=== PATIENT | female | born 1965 | race Caucasian/White ===

== ENCOUNTER 2020-09-24 04:40 | Inpatient (IN) ==
[2020-09-24] MEDS ORDERED: HYDROCORTISONE 100 MG VIAL IV STA (04:54)
[2020-09-24] MEDS ORDERED: ALBUTEROL 2.5 MG/3 ML NEB RESP TX PRN (05:13)
[2020-09-24] MEDS ORDERED: ONDANSETRON 4 MG/2 ML VIAL IV PRN (05:13)
[2020-09-24] MEDS ORDERED: PIPERACILLIN/TAZOBACTAM 3,375 MG in SODIUM CHLORIDE 0.9% 100 ML IV STA (05:13)
[2020-09-24] MEDS ORDERED: VANCOMYCIN INJ 1,000 MG in SODIUM CHLORIDE 0.9% 250 ML IV ONE (05:13)
[2020-09-24] MEDS ORDERED: DOCUSATE SODIUM 100 MG CAPSULE PO PRN (05:13)
[2020-09-24] MEDS ORDERED: cefTRIAXone 2,000 MG in SODIUM CHLORIDE 0.9% 100 ML IV SCH (06:00)
[2020-09-24] MEDS ORDERED: GLUCAGON 1 MG VIAL IM PRN (06:17)
[2020-09-24] MEDS ORDERED: DEXTROSE 50% 25 GM/50 ML VIAL IV PRN (06:17)
[2020-09-24 06:35] LABS: Basophils % 0.1 % (0.0-0.8); Eosinophils # 0.1 10*3/uL (0.0-0.87); Eosinophils % 0.7 % (0.00-10.9); Hematocrit 33.5 VOL% (35.7-47.0); Hemoglobin 10.9 GM/DL (12.0-16.0); Immature Granulocytes Absolute 0.09 #; Lymphocytes # 0.4 10*3/uL (1.4-4.0); Lymphocytes % 4.8 % (21.3-54.2); Mean Corpuscular HGB Conc 32.5 GM/DL (32-36); Mean Corpuscular Volume 90.1 FL (87-102); Mean Platelet Volume 9.4 FL (9.6-12.0); Monocytes % 2.9 % (1.7-12.7); Neutrophils % 90.5 % (38.7-73.9); Platelet Count 157 T/CUMM (130-400); Red Blood Count 3.72 MC/CUMM (3.8-5.5); Red Cell Distribution Width 13.2 % (9.3-17.3); White Blood Count 8.6 T/CUMM (4-12)
[2020-09-24 06:40] LABS: Bilirubin,Urine Negative (Negative); Blood, Urine Moderate mg/dL (Negative); Glucose,Urine (UA) Negative (Negative); Ketones,Urine Negative (Negative); Nitrite,Urine Negative (Negative); Protein,Urine Negative; RBC,Urine 3 /HPF (0-4); Squamous Epithelial Cell,Urine Occasional /HPF (0-10); Urine Appearance CLEAR (Clear); Urine Color Yellow (Yellow); Urine Urobilinogen < 2.0 EU/DL (0.2-1.0)
[2020-09-24] MEDS: SODIUM CHLORIDE 0.9% 1,000 ML IV SCH ×3 (06:42→23:28)
[2020-09-24 06:45] LABS: INR 1.3
[2020-09-24 06:55] LABS: Albumin 2.4 G/DL (3.4-5.0); Bilirubin,Total 0.4 MG/DL (0.20-1.00); Calcium 7.4 MG/DL (8.5-10.1); Osmolality,Calculated 280.5 MOS/KG (273-304); Potassium 3.2 MMOL/L (3.5-5.1); Total Protein 5.1 G/DL (6.4-8.2)
[2020-09-24 07:28] LABS: Anisocytosis 1+; Band Neutrophils 45 % (0-10); Eosinophils 2 % (0-10); Lymphocytes 6 % (20-55); Macrocytosis Slight; Metamyelocytes 7 %; Myelocytes 2 %; Platelet Estimate Normal; Segmented Neutrophils 36 % (50-85); Total Cells Counted 100
[2020-09-24] MEDS: NOREPINEPHRINE 8 MG in SODIUM CHLORIDE 0.9% 242 ML IV PRN ×2 (07:29→09:48)
[2020-09-24] MEDS: INSULIN REGULAR 100 UNIT/ML SUBCUT SCH ×4 (07:32→21:00)
[2020-09-24] MEDS ORDERED: ACYCLOVIR INJ 750 MG in SODIUM CHLORIDE 0.9% 250 ML IV SCH (08:00)
[2020-09-24 08:25] LABS: Lymphocytes,CSF 17 %; Monocytes,CSF 83 %
[2020-09-24 08:26] LABS: Appearance,CSF Clear; Red Blood Cell,CSF 23 C/CUMM; White Blood Cell,CSF 3 C/CUMM
[2020-09-24 08:30] LABS: Glucose,CSF 77 MG/DL (40-70)
[2020-09-24] MEDS ORDERED: VANCOMYCIN INJ 2,000 MG in SODIUM CHLORIDE 0.9% 500 ML IV ONE (09:00)
[2020-09-24] MEDS ORDERED: VANCOMYCIN INJ 1,250 MG in SODIUM CHLORIDE 0.9% 250 ML IV ONE (09:30)
[2020-09-24] MEDS ORDERED: POTASSIUM CHLORIDE 20 MEQ/15 ML UDCUP PER TUBE PRN (10:02)
[2020-09-24] MEDS ORDERED: MAGNESIUM SULF RIDER 4 GM/100 ML PREMIX IV PRN (10:02)
[2020-09-24] MEDS ORDERED: MIDAZOLAM 100 MG in SODIUM CHLORIDE 0.9% 80 ML IV PRN (14:52)
[2020-09-24] MEDS ORDERED: KETAMINE 500 MG/10 ML VIAL ONE (15:00)
[2020-09-24] MEDS ORDERED: LIDOCAINE 2% 5 ML VIAL ONE (15:00)
[2020-09-24] MEDS ORDERED: SEVOFLURANE 1 UNIT/15 MINUTE INH ONE (15:00)
[2020-09-24] MEDS ORDERED: MIDAZOLAM 2 MG/2 ML VIAL ONE (15:01)
[2020-09-24] MEDS ORDERED: ROCURONIUM 50 MG/5 ML VIAL IV ONE (15:01)
[2020-09-24] MEDS ORDERED: MIDAZOLAM 10 MG/2 ML VIAL ONE (15:01)
[2020-09-24] MEDS ORDERED: ETOMIDATE 40 MG/20 ML VIAL IV ONE (15:01)
[2020-09-24 15:26] LABS: ABG Base Excess -11.1 MMOL/L (-2.5-2.5); ABG HCO3 15.7 MMOL/L (20-26); ABG Oxygen Saturation 99.3 % (95-100); ABG PCO2 49.8 MM HG (35-48); ABG TCO2 16.6 MMOL/L (23-27)
[2020-09-24 15:27] LABS: ABG PH 7.158 (7.35-7.45)
[2020-09-24 17:08] LABS: ABG Base Excess -10.5 MMOL/L (-2.5-2.5); ABG HCO3 17.3 MMOL/L (20-26); ABG Oxygen Saturation 97.6 % (95-100); ABG PCO2 45.8 MM HG (35-48); ABG PO2 119.6 MM HG (80-95); ABG TCO2 18.7 MMOL/L (23-27)
[2020-09-24 17:10] LABS: ABG PH 7.195 (7.35-7.45)
[2020-09-24] MEDS ORDERED: DEXMEDETOMIDINE 200 MCG in SODIUM CHLORIDE 0.9% 48 ML IV PRN (18:30)
[2020-09-24] MEDS ORDERED: fentaNYL INJ 1,250 MCG in SODIUM CHLORIDE 0.9% 225 ML IV PRN (21:30)
[2020-09-25] MEDS ORDERED: NOREPINEPHRINE 4 MG/4 ML VIAL IV ONE (00:28)
[2020-09-25] MEDS ORDERED: PHENYLEPHRINE DRIP 40 MG/250 ML PREMIX IV ONE (00:52)
[2020-09-25] MEDS ORDERED: PHENYLEPHRINE DRIP 40 MG/250 ML PREMIX IV PRN (00:53)
[2020-09-25 04:15] LABS: ABG HCO3 18.7 MMOL/L (20-26); ABG Oxygen Saturation 99.9 % (95-100); ABG PCO2 35.4 MM HG (35-48); ABG PH 7.322 (7.35-7.45); ABG TCO2 16.8 MMOL/L (23-27)
[2020-09-25 04:27] LABS: Basophils # 0.1 10*3/uL (0.0-0.2); Basophils % 0.3 % (0.0-0.8); Hematocrit 26.9 VOL% (35.7-47.0); Immature Granulocytes % 17.6 %; Immature Granulocytes Absolute 3.55 #; Lymphocytes # 0.7 10*3/uL (1.4-4.0); Lymphocytes % 3.6 % (21.3-54.2); Mean Corpuscular HGB Conc 33.5 GM/DL (32-36); Mean Corpuscular Volume 90.3 FL (87-102); Mean Platelet Volume 9.7 FL (9.6-12.0); Monocytes % 2.7 % (1.7-12.7); Neutrophils % 75.8 % (38.7-73.9); Platelet Count 112 T/CUMM (130-400); Red Blood Count 2.98 MC/CUMM (3.8-5.5); Red Cell Distribution Width 13.8 % (9.3-17.3); White Blood Count 20.2 T/CUMM (4-12)
[2020-09-25 04:54] LABS: Bilirubin,Total 0.6 MG/DL (0.20-1.00); Calcium 6.7 MG/DL (8.5-10.1); Osmolality,Calculated 295.6 MOS/KG (273-304); Potassium 3.5 MMOL/L (3.5-5.1); Total Protein 4.7 G/DL (6.4-8.2)
[2020-09-25] MEDS: MAGNESIUM SULF RIDER 2 GM/50 ML PREMIX IV PRN (05:50)
[2020-09-25] MEDS: LEVOFLOXACIN INJ 750 MG/150 ML PREMIX IV SCH (06:24)
[2020-09-25] MEDS: SODIUM CHLORIDE 0.9% 1,000 ML IV SCH (06:26)
[2020-09-25] MEDS: SODIUM BICARB INJ 50 MEQ in STERILE WATER INJ 1,000 ML IV SCH ×3 (06:43→23:04)
[2020-09-25 06:47] LABS: Burr Cells Few; Lymphocytes 3 % (20-55); Platelet Estimate Adequate; Segmented Neutrophils 81 % (50-85); Total Cells Counted 100
[2020-09-25] MEDS: INSULIN REGULAR 100 UNIT/ML SUBCUT SCH ×4 (08:18→21:45)
[2020-09-25] MEDS ORDERED: VANCOMYCIN IV SCH (09:00)
[2020-09-25] MEDS ORDERED: SODIUM CHLORIDE 0.9% IV SCH (09:00)
[2020-09-25] MEDS: ACETAMINOPHEN 325 MG TABLET PO PRN (19:48)
[2020-09-25] MEDS: BUTALBITAL/ACETAMIN/CAFFEINE 50-325-40 MG TABLET PO PRN (21:20)
[2020-09-25] MEDS: VENLAFAXINE XR 75 MG CAPSULE PO SCH (21:20)
[2020-09-26] MEDS: BUTALBITAL/ACETAMIN/CAFFEINE 50-325-40 MG TABLET PO PRN (00:31)
[2020-09-26] MEDS ORDERED: KETOROLAC 30 MG/1 ML VIAL IV ONE (02:48)
[2020-09-26] MEDS ORDERED: PROMETHAZINE INJ 12.5 MG in SODIUM CHLORIDE 0.9% 100 ML IV ONE (02:48)
[2020-09-26 03:25] LABS: ABG Base Excess 0.6 MMOL/L (-2.5-2.5); ABG Oxygen Saturation 95.2 % (95-100); ABG PH 7.467 (7.35-7.45); ABG PO2 78.2 MM HG (80-95); ABG TCO2 25.1 MMOL/L (23-27)
[2020-09-26 03:37] LABS: Basophils # 0.1 10*3/uL (0.0-0.2); Basophils % 0.3 % (0.0-0.8); Eosinophils # 0.1 10*3/uL (0.0-0.87); Eosinophils % 0.3 % (0.00-10.9); Hemoglobin 8.4 GM/DL (12.0-16.0); Immature Granulocytes % 1.6 %; Immature Granulocytes Absolute 0.32 #; Lymphocytes # 1.3 10*3/uL (1.4-4.0); Lymphocytes % 6.6 % (21.3-54.2); Mean Corpuscular HGB Conc 33.6 GM/DL (32-36); Mean Corpuscular Volume 87.4 FL (87-102); Mean Platelet Volume 10.2 FL (9.6-12.0); Neutrophils % 87.2 % (38.7-73.9); Platelet Count 84 T/CUMM (130-400); Red Blood Count 2.86 MC/CUMM (3.8-5.5); Red Cell Distribution Width 13.6 % (9.3-17.3); White Blood Count 19.6 T/CUMM (4-12)
[2020-09-26 03:50] LABS: Bilirubin,Total 0.6 MG/DL (0.20-1.00); Calcium 7.4 MG/DL (8.5-10.1); Osmolality,Calculated 278.7 MOS/KG (273-304); Potassium 2.8 MMOL/L (3.5-5.1); Total Protein 4.9 G/DL (6.4-8.2)
[2020-09-26 04:12] LABS: Band Neutrophils 3 % (0-10); Eosinophils 1 % (0-10); Lymphocytes 12 % (20-55); Microcytosis 1+; Nucleated Red Blood Cells 1 (0-5); Ovalocytes Slight; Segmented Neutrophils 79 % (50-85); Total Cells Counted 100
[2020-09-26 04:13] LABS: Platelet Estimate Decreased
[2020-09-26] MEDS: POTASSIUM CHLORIDE 20 MEQ TABLET PO PRN ×2 (04:16→06:15)
[2020-09-26] MEDS: LEVOFLOXACIN INJ 750 MG/150 ML PREMIX IV SCH (06:15)
[2020-09-26] MEDS: INSULIN REGULAR 100 UNIT/ML SUBCUT SCH ×4 (07:20→20:50)
[2020-09-26] MEDS: cefTRIAXone 1,000 MG in SODIUM CHLORIDE 0.9% 100 ML IV SCH (08:03)
[2020-09-26] MEDS: SODIUM BICARB INJ 50 MEQ in STERILE WATER INJ 1,000 ML IV SCH (08:42)
[2020-09-26] MEDS: ACETAMINOPHEN 325 MG TABLET PO PRN (16:30)
[2020-09-26 18:46] LABS: CSF Crypto neoforman/gatti PCR Negative (Negative); CSF Cytomegalovirus PCR Negative (Negative); CSF Enterovirus PCR Negative (Negative); CSF Escherichia coli K1 PCR Negative (Negative); CSF Haemophilus influenzae PCR Negative (Negative); CSF Herpes Simplex Virus 1 PCR Negative (Negative); CSF Herpes Simplex Virus 2 PCR Negative (Negative); CSF Human Herpes Virus 6 PCR Negative (Negative); CSF Human Parechovirus PCR Negative (Negative); CSF Listeria monocytogenes PCR Negative (Negative); CSF Neisseria meningitidis PCR Negative (Negative); CSF Streptococcus agalacti PCR Negative (Negative); CSF Streptococcus pneumon PCR Negative (Negative); CSF Varicella Zoster Virus PCR Negative (Negative); Specimen source CEREBROSPINAL FLUID
[2020-09-26] MEDS: VENLAFAXINE XR 75 MG CAPSULE PO SCH (20:50)
[2020-09-27] MEDS: ACETAMINOPHEN 325 MG TABLET PO PRN (00:12)
[2020-09-27] MEDS: LEVOFLOXACIN INJ 750 MG/150 ML PREMIX IV SCH (05:38)
[2020-09-27] MEDS: BUTALBITAL/ACETAMIN/CAFFEINE 50-325-40 MG TABLET PO PRN (05:46)
[2020-09-27 06:27] LABS: Basophils # 0.1 10*3/uL (0.0-0.2); Basophils % 0.4 % (0.0-0.8); Eosinophils # 0.2 10*3/uL (0.0-0.87); Eosinophils % 1.4 % (0.00-10.9); Hematocrit 29.1 VOL% (35.7-47.0); Hemoglobin 9.7 GM/DL (12.0-16.0); Immature Granulocytes % 2.1 %; Immature Granulocytes Absolute 0.29 #; Lymphocytes # 1.2 10*3/uL (1.4-4.0); Lymphocytes % 8.8 % (21.3-54.2); Mean Corpuscular HGB Conc 33.3 GM/DL (32-36); Mean Corpuscular Volume 87.1 FL (87-102); Monocytes % 5.4 % (1.7-12.7); NRBC # 0.02 10*3/uL; Neutrophils % 81.9 % (38.7-73.9); Platelet Count 114 T/CUMM (130-400); Red Blood Count 3.34 MC/CUMM (3.8-5.5); Red Cell Distribution Width 13.3 % (9.3-17.3); White Blood Count 13.8 T/CUMM (4-12)
[2020-09-27 06:49] LABS: Eosinophils 1 % (0-10); Hypochromasia 1+; Lymphocytes 8 % (20-55); Microcytosis 1+; Platelet Estimate Decreased; Segmented Neutrophils 82 % (50-85); Total Cells Counted 100
[2020-09-27 07:01] LABS: Calcium 8.1 MG/DL (8.5-10.1); Potassium 3.1 MMOL/L (3.5-5.1)
[2020-09-27] MEDS: INSULIN REGULAR 100 UNIT/ML SUBCUT SCH ×4 (07:38→22:45)
[2020-09-27] MEDS: POTASSIUM CHLORIDE 20 MEQ TABLET PO PRN ×5 (08:25→16:55)
[2020-09-27] MEDS: cefTRIAXone 1,000 MG in SODIUM CHLORIDE 0.9% 100 ML IV SCH (08:25)
[2020-09-27] MEDS ORDERED: MAGNESIUM HYDROXIDE SUSP 30 ML UDCUP PO PRN (11:26)
[2020-09-27] MEDS ORDERED: SIMETHICONE CHEW 125 MG TABLET PO PRN (11:26)
[2020-09-27] MEDS: valACYclovir 500 MG TABLET PO SCH ×2 (11:33→20:55)
[2020-09-27] MEDS: KETOROLAC 15 MG/1 ML VIAL IV PRN ×2 (12:07→18:08)
[2020-09-27] MEDS: VENLAFAXINE XR 75 MG CAPSULE PO SCH (20:55)
[2020-09-27] MEDS: MELATONIN 3 MG TABLET PO PRN (20:56)
[2020-09-28] MEDS: LEVOFLOXACIN INJ 750 MG/150 ML PREMIX IV SCH (05:42)
[2020-09-28 05:45] LABS: Basophils # 0.1 10*3/uL (0.0-0.2); Basophils % 0.4 % (0.0-0.8); Eosinophils # 0.2 10*3/uL (0.0-0.87); Eosinophils % 1.8 % (0.00-10.9); Hematocrit 30.9 VOL% (35.7-47.0); Hemoglobin 10.4 GM/DL (12.0-16.0); Immature Granulocytes % 0.9 %; Immature Granulocytes Absolute 0.12 #; Lymphocytes # 1.3 10*3/uL (1.4-4.0); Lymphocytes % 9.7 % (21.3-54.2); Mean Corpuscular HGB Conc 33.7 GM/DL (32-36); Mean Corpuscular Volume 86.8 FL (87-102); Mean Platelet Volume 10.5 FL (9.6-12.0); Monocytes % 15.7 % (1.7-12.7); NRBC # 0.02 10*3/uL; Neutrophils % 71.5 % (38.7-73.9); Platelet Count 126 T/CUMM (130-400); Red Blood Count 3.56 MC/CUMM (3.8-5.5); Red Cell Distribution Width 13.2 % (9.3-17.3)
[2020-09-28 06:05] LABS: Band Neutrophils 9 % (0-10); Eosinophils 3 % (0-10); Lymphocytes 11 % (20-55); Segmented Neutrophils 68 % (50-85); Total Cells Counted 100
[2020-09-28 06:06] LABS: Hypochromasia 1+; Microcytosis 1+; Platelet Estimate Adequate
[2020-09-28 06:25] LABS: Bilirubin,Total 0.7 MG/DL (0.20-1.00); Calcium 8.1 MG/DL (8.5-10.1); Potassium 3.4 MMOL/L (3.5-5.1); Total Protein 5.6 G/DL (6.4-8.2)
[2020-09-28] MEDS: INSULIN REGULAR 100 UNIT/ML SUBCUT SCH ×4 (07:48→21:18)
[2020-09-28] MEDS: valACYclovir 500 MG TABLET PO SCH ×2 (08:20→21:16)
[2020-09-28] MEDS: KETOROLAC 15 MG/1 ML VIAL IV PRN ×3 (08:21→21:17)
[2020-09-28] MEDS: CHOLECALCIFEROL 1,000 UNIT TABLET PO SCH (12:57)
[2020-09-28] MEDS: VENLAFAXINE XR 75 MG CAPSULE PO SCH (21:16)
[2020-09-28] MEDS: MELATONIN 3 MG TABLET PO PRN (21:16)
[2020-09-29] MEDS: POTASSIUM CHLORIDE 20 MEQ TABLET PO PRN ×3 (04:43→09:57)
[2020-09-29] MEDS: LEVOFLOXACIN INJ 750 MG/150 ML PREMIX IV SCH (06:03)
[2020-09-29 06:24] LABS: Basophils # 0.1 10*3/uL (0.0-0.2); Basophils % 0.6 % (0.0-0.8); Eosinophils # 0.2 10*3/uL (0.0-0.87); Eosinophils % 1.5 % (0.00-10.9); Hemoglobin 10.8 GM/DL (12.0-16.0); Immature Granulocytes % 3.1 %; Immature Granulocytes Absolute 0.47 #; Lymphocytes # 1.7 10*3/uL (1.4-4.0); Lymphocytes % 11.4 % (21.3-54.2); Mean Corpuscular HGB Conc 33.8 GM/DL (32-36); Mean Corpuscular Volume 88.4 FL (87-102); Mean Platelet Volume 10.3 FL (9.6-12.0); Monocytes % 15.5 % (1.7-12.7); Neutrophils % 67.9 % (38.7-73.9); Platelet Count 151 T/CUMM (130-400); Red Blood Count 3.62 MC/CUMM (3.8-5.5); Red Cell Distribution Width 13.2 % (9.3-17.3)
[2020-09-29 06:46] LABS: Albumin 2.1 G/DL (3.4-5.0); Bilirubin,Total 0.4 MG/DL (0.20-1.00); Calcium 8.4 MG/DL (8.5-10.1); Osmolality,Calculated 280.4 MOS/KG (273-304); Potassium 3.6 MMOL/L (3.5-5.1); Total Protein 5.7 G/DL (6.4-8.2)
[2020-09-29] MEDS: INSULIN REGULAR 100 UNIT/ML SUBCUT SCH ×4 (09:01→22:42)
[2020-09-29] MEDS: CHOLECALCIFEROL 1,000 UNIT TABLET PO SCH ×2 (09:57→17:56)
[2020-09-29] MEDS: MAGNESIUM SULF RIDER 2 GM/50 ML PREMIX IV PRN (09:57)
[2020-09-29] MEDS: valACYclovir 500 MG TABLET PO SCH ×2 (09:57→20:59)
[2020-09-29] MEDS: VENLAFAXINE XR 75 MG CAPSULE PO SCH ×2 (11:43→20:59)
[2020-09-29] MEDS ORDERED: ERGOCALCIFEROL 50,000 UNIT CAPSULE PO ONE (17:07)
[2020-09-29] MEDS: MEROPENEM 500 MG in SODIUM CHLORIDE 0.9% 100 ML IV SCH ×2 (17:57→23:09)
[2020-09-29] MEDS: KETOROLAC 15 MG/1 ML VIAL IV PRN (17:58)
[2020-09-29] MEDS: ACETAMINOPHEN 325 MG TABLET PO PRN (20:59)
[2020-09-29] MEDS: LUBIPROSTONE 8 MCG CAPSULE PO SCH (20:59)
[2020-09-30] MEDS: MEROPENEM 500 MG in SODIUM CHLORIDE 0.9% 100 ML IV SCH ×4 (05:06→22:57)
[2020-09-30] MEDS: KETOROLAC 15 MG/1 ML VIAL IV PRN ×2 (05:07→20:02)
[2020-09-30 06:13] LABS: Basophils # 0.1 10*3/uL (0.0-0.2); Basophils % 0.4 % (0.0-0.8); Eosinophils # 0.2 10*3/uL (0.0-0.87); Eosinophils % 1.5 % (0.00-10.9); Hematocrit 31.5 VOL% (35.7-47.0); Hemoglobin 10.3 GM/DL (12.0-16.0); Immature Granulocytes % 3.2 %; Immature Granulocytes Absolute 0.44 #; Lymphocytes # 1.9 10*3/uL (1.4-4.0); Mean Corpuscular HGB Conc 32.7 GM/DL (32-36); Mean Corpuscular Volume 89.7 FL (87-102); Mean Platelet Volume 10.6 FL (9.6-12.0); Neutrophils % 65.9 % (38.7-73.9); Platelet Count 187 T/CUMM (130-400); Red Blood Count 3.51 MC/CUMM (3.8-5.5); Red Cell Distribution Width 13.4 % (9.3-17.3); White Blood Count 13.6 T/CUMM (4-12)
[2020-09-30 06:25] LABS: Calcium 8.4 MG/DL (8.5-10.1); Osmolality,Calculated 277.5 MOS/KG (273-304); Potassium 3.8 MMOL/L (3.5-5.1)
[2020-09-30 06:57] LABS: Band Neutrophils 6 % (0-10); Eosinophils 2 % (0-10); Hypochromasia 1+; Lymphocytes 10 % (20-55); Microcytosis 1+; Polychromasia Slight; Segmented Neutrophils 67 % (50-85); Total Cells Counted 100
[2020-09-30 06:58] LABS: Ovalocytes Slight; Platelet Estimate Adequate
[2020-09-30] MEDS: LINACLOTIDE 145 MCG CAPSULE PO SCH (08:59)
[2020-09-30] MEDS: INSULIN REGULAR 100 UNIT/ML SUBCUT SCH ×4 (09:00→20:51)
[2020-09-30] MEDS: POTASSIUM CHLORIDE 20 MEQ TABLET PO PRN (09:00)
[2020-09-30] MEDS: MAGNESIUM CHLORIDE 64 MG TABLET PO SCH (09:00)
[2020-09-30] MEDS: CHOLECALCIFEROL 1,000 UNIT TABLET PO SCH (09:00)
[2020-09-30] MEDS: valACYclovir 500 MG TABLET PO SCH ×2 (09:00→20:03)
[2020-09-30] MEDS: LUBIPROSTONE 8 MCG CAPSULE PO SCH ×2 (09:01→20:02)
[2020-09-30] MEDS: VENLAFAXINE XR 75 MG CAPSULE PO SCH ×2 (09:01→20:03)
[2020-09-30] MEDS: ACETAMINOPHEN 325 MG TABLET PO PRN (09:01)
[2020-10-01] MEDS: ACETAMINOPHEN 325 MG TABLET PO PRN (00:15)
[2020-10-01] MEDS: MEROPENEM 500 MG in SODIUM CHLORIDE 0.9% 100 ML IV SCH ×4 (04:44→23:37)
[2020-10-01 05:30] LABS: Basophils # 0.1 10*3/uL (0.0-0.2); Basophils % 0.5 % (0.0-0.8); Eosinophils # 0.3 10*3/uL (0.0-0.87); Eosinophils % 2.1 % (0.00-10.9); Hematocrit 30.3 VOL% (35.7-47.0); Hemoglobin 9.8 GM/DL (12.0-16.0); Immature Granulocytes % 3.7 %; Immature Granulocytes Absolute 0.44 #; Lymphocytes # 2.3 10*3/uL (1.4-4.0); Lymphocytes % 19.3 % (21.3-54.2); Mean Corpuscular HGB Conc 32.3 GM/DL (32-36); Mean Corpuscular Volume 89.4 FL (87-102); Mean Platelet Volume 10.1 FL (9.6-12.0); Monocytes % 13.9 % (1.7-12.7); Neutrophils % 60.5 % (38.7-73.9); Platelet Count 240 T/CUMM (130-400); Red Blood Count 3.39 MC/CUMM (3.8-5.5); Red Cell Distribution Width 13.5 % (9.3-17.3); White Blood Count 11.8 T/CUMM (4-12)
[2020-10-01 05:53] LABS: Calcium 8.7 MG/DL (8.5-10.1); Osmolality,Calculated 280.4 MOS/KG (273-304); Potassium 3.7 MMOL/L (3.5-5.1)
[2020-10-01] MEDS: POTASSIUM CHLORIDE 20 MEQ TABLET PO PRN (06:41)
[2020-10-01] MEDS: LINACLOTIDE 145 MCG CAPSULE PO SCH (07:38)
[2020-10-01] MEDS: INSULIN REGULAR 100 UNIT/ML SUBCUT SCH ×4 (07:38→22:04)
[2020-10-01] MEDS: CHOLECALCIFEROL 1,000 UNIT TABLET PO SCH (09:42)
[2020-10-01] MEDS: VENLAFAXINE XR 75 MG CAPSULE PO SCH ×2 (09:42→21:16)
[2020-10-01] MEDS: valACYclovir 500 MG TABLET PO SCH ×2 (09:42→21:16)
[2020-10-01] MEDS: MAGNESIUM CHLORIDE 64 MG TABLET PO SCH (09:43)
[2020-10-01] MEDS: LUBIPROSTONE 8 MCG CAPSULE PO SCH ×2 (09:43→21:16)
[2020-10-01] MEDS ORDERED: PHENOL 1.4% THROAT SPRAY 177 ML BOTTLE PO PRN (16:59)
[2020-10-02] MEDS ORDERED: cefTRIAXone 1,000 MG in SODIUM CHLORIDE 0.9% 100 ML IV ONE ×2 (00:01→13:39)
[2020-10-02] MEDS: MEROPENEM 500 MG in SODIUM CHLORIDE 0.9% 100 ML IV SCH ×4 (05:06→23:00)
[2020-10-02 05:43] LABS: Basophils # 0.1 10*3/uL (0.0-0.2); Basophils % 0.5 % (0.0-0.8); Eosinophils # 0.2 10*3/uL (0.0-0.87); Eosinophils % 1.3 % (0.00-10.9); Hematocrit 32.5 VOL% (35.7-47.0); Hemoglobin 10.4 GM/DL (12.0-16.0); Immature Granulocytes % 2.8 %; Immature Granulocytes Absolute 0.37 #; Lymphocytes % 15.2 % (21.3-54.2); Mean Corpuscular Volume 89.5 FL (87-102); Mean Platelet Volume 9.6 FL (9.6-12.0); Monocytes % 10.6 % (1.7-12.7); Neutrophils % 69.6 % (38.7-73.9); Platelet Count 324 T/CUMM (130-400); Red Blood Count 3.63 MC/CUMM (3.8-5.5); Red Cell Distribution Width 13.3 % (9.3-17.3); White Blood Count 13.1 T/CUMM (4-12)
[2020-10-02 05:55] LABS: PT Patient Result 11.1 SECS (10.5-12.0)
[2020-10-02 06:10] LABS: Albumin 2.5 G/DL (3.4-5.0); Bilirubin,Total 0.5 MG/DL (0.20-1.00); Calcium 9.1 MG/DL (8.5-10.1); Osmolality,Calculated 276.7 MOS/KG (273-304); Total Protein 6.8 G/DL (6.4-8.2)
[2020-10-02] MEDS: INSULIN REGULAR 100 UNIT/ML SUBCUT SCH ×4 (08:21→21:44)
[2020-10-02] MEDS: valACYclovir 500 MG TABLET PO SCH ×2 (09:13→21:13)
[2020-10-02] MEDS: LUBIPROSTONE 8 MCG CAPSULE PO SCH ×2 (09:13→21:14)
[2020-10-02] MEDS: MAGNESIUM CHLORIDE 64 MG TABLET PO SCH (09:13)
[2020-10-02] MEDS: VENLAFAXINE XR 75 MG CAPSULE PO SCH ×2 (09:13→21:13)
[2020-10-02] MEDS: SODIUM CHLORIDE 0.9% 1,000 ML IV SCH ×3 (09:13→23:55)
[2020-10-02] MEDS: CHOLECALCIFEROL 1,000 UNIT TABLET PO SCH (09:14)
[2020-10-02 11:12] LABS: 25-Hydroxy D Total 34 ng/mL; 25-Hydroxy D2 < 4.0 ng/mL; 25-Hydroxy D3 34 ng/mL
[2020-10-02] MEDS ORDERED: LIDOCAINE 2% 5 ML VIAL ONE (13:24)
[2020-10-02] MEDS ORDERED: propofoL 200 MG/20 ML VIAL IV ONE (13:24)
[2020-10-02] MEDS ORDERED: MIDAZOLAM 2 MG/2 ML VIAL ONE (13:24)
[2020-10-02] MEDS ORDERED: SEVOFLURANE 1 UNIT/15 MINUTE INH ONE (13:24)
[2020-10-02] MEDS ORDERED: fentaNYL 100 MCG/2 ML VIAL ONE (13:25)
[2020-10-02] MEDS ORDERED: PHENYLEPHRINE 1 MG/10 ML SYRINGE IV ONE (14:30)
[2020-10-02] MEDS: ACETAMINOPHEN 325 MG TABLET PO PRN (20:03)
[2020-10-03] MEDS: MEROPENEM 500 MG in SODIUM CHLORIDE 0.9% 100 ML IV SCH ×2 (05:08→11:23)
[2020-10-03 07:49] VITALS: BP 126/73
[2020-10-03] MEDS: INSULIN REGULAR 100 UNIT/ML SUBCUT SCH ×2 (08:40→11:14)
[2020-10-03 09:07] LABS: Basophils # 0.1 10*3/uL (0.0-0.2); Basophils % 0.6 % (0.0-0.8); Eosinophils # 0.1 10*3/uL (0.0-0.87); Eosinophils % 1.2 % (0.00-10.9); Hematocrit 32.9 VOL% (35.7-47.0); Hemoglobin 10.4 GM/DL (12.0-16.0); Immature Granulocytes % 2.3 %; Immature Granulocytes Absolute 0.24 #; Lymphocytes # 1.8 10*3/uL (1.4-4.0); Lymphocytes % 17.5 % (21.3-54.2); Mean Corpuscular HGB Conc 31.6 GM/DL (32-36); Mean Corpuscular Volume 91.1 FL (87-102); Mean Platelet Volume 9.7 FL (9.6-12.0); Monocytes % 8.6 % (1.7-12.7); Neutrophils % 69.8 % (38.7-73.9); Platelet Count 412 T/CUMM (130-400); Red Blood Count 3.61 MC/CUMM (3.8-5.5); Red Cell Distribution Width 13.2 % (9.3-17.3); White Blood Count 10.3 T/CUMM (4-12)
[2020-10-03] MEDS: SODIUM CHLORIDE 0.9% 1,000 ML IV SCH (09:20)
[2020-10-03] MEDS: VENLAFAXINE XR 75 MG CAPSULE PO SCH (09:21)
[2020-10-03] MEDS: LUBIPROSTONE 8 MCG CAPSULE PO SCH (09:21)
[2020-10-03] MEDS: valACYclovir 500 MG TABLET PO SCH (09:21)
[2020-10-03] MEDS: CHOLECALCIFEROL 1,000 UNIT TABLET PO SCH (09:21)
[2020-10-03] MEDS: MAGNESIUM CHLORIDE 64 MG TABLET PO SCH (09:22)
[2020-10-03 09:40] LABS: Calcium 8.8 MG/DL (8.5-10.1); Osmolality,Calculated 280.3 MOS/KG (273-304); Potassium 4.3 MMOL/L (3.5-5.1)
== END 2020-10-03 14:05 | disposition home or self-care (01) | DRG 853 ==
LOC: N.ED 04:40 → N.EDINP 05:12 → SUATTDRO 05:12 → N.ICU 09-25 00:07 → N.3E 09-26 18:25
PROVIDERS: ADMIT Internal Medicine; ATTEND Hospitalist